=== PATIENT | female | born 1980 | race Caucasian/White ===

== ENCOUNTER → 2017-11-06 14:57 | Outpatient (CLI) | payer OTHER, MEDICAID, SELFPAY ==
[2017-11-06 17:05] LABS: Follicle Stimulating Hormone 1.19 mIU/mL; Luteinizing Hormone 0.87 mIU/mL; Prolactin 8.4 ng/mL (3.0-18.6)
[2017-11-06 17:18] LABS: Thyroid Stimulating Hormone 0.31 uIU/mL (0.47-4.68)
== END ==
DX: N92.1 Excessive and frequent menstruation with irregular cycle (principal)
CPT/HCPCS: 36415; 83001; 83002; 84146; 84443

== ENCOUNTER → 2018-01-22 17:27 | Outpatient (CLI) | payer OTHER, MEDICAID, SELFPAY ==
--- NOTE | 2018-01-22 | DI.MRI.S_ITS ---
PROCEDURE: MR HEAD/BRAIN WO CON INDICATIONS: HEADACHE TECHNIQUE: Noncontrast axial T1 spin echo, axial T2 fast spin echo, sagittal and axial FLAIR, coronal T2 fast spin echo, axial gradient echo, axial diffusion and ADC through the brain. COMPARISON: [facility], US, CAROTID ARTERY DOPPLER BILAT, 02/26/2010, 11:40. [facility], CT, HEAD WITH AND WITHOUT CONTRAST, 02/26/2010, 10:14. [facility], CT, HEAD WITHOUT CONTRAST, 06/05/2017, 13:35. FINDINGS: Image quality: Excellent. CSF Spaces: Basal cisterns are patent. No extra-axial fluid collections. Ventricles are normal in size and shape. Brain: No intracranial masses or hemorrhage. Bajwa/white matter interface is normal. Brainstem appears normal. Diffusion-weighted images demonstrate no acute ischemic insult. No chronic ischemic insults. Normal intravascular flow voids are present. Skull and face: Calvarium has normal marrow signal. Orbits appear normal. Sinuses: Sinuses and mastoids are clear. IMPRESSION: Normal examination. A cause for headache is not identified. Dictated by: Areli Ragsdale M.D. on 01/25/2018 at 8:00 Approved by: Areli Ragsdale M.D. on 01/25/2018 at 10:16
== END ==
PROVIDERS: Visit Provider Family Medicine
DX: R51 Headache (principal)
CPT/HCPCS: 70551

== ENCOUNTER → 2018-04-16 18:46 | Outpatient (CLI) | payer OTHER, MEDICAID, SELFPAY ==
--- NOTE | 2018-04-16 | DI.MRI.S_ITS ---
PROCEDURE: MR KNEE RT WO CON INDICATIONS: ACUTE INTERNAL DERANGEMENT OF THE RIGHT KNEE TECHNIQUE: Noncontrast sagittal PD fast spin echo and T2 fast spin echo with fat saturation, sagittal 3-D FLASH with fat saturation; coronal T1 spin echo and PD fast spin echo with fat saturation, and axial PD fast spin echo with fat saturation through the knee. COMPARISON: None. FINDINGS: Image quality: Excellent. Menisci: The medial and lateral menisci demonstrate normal morphology and internal signal. The meniscal root ligaments appear intact. Cruciate ligaments: The anterior and posterior cruciate ligaments appear intact. Medial structures: The medial collateral ligament appears intact. The posterior oblique ligament, semimembranosus tendon insertions, oblique popliteal ligament, and meniscocapsular junction appear intact. Visualized portions of the pes anserinus tendons appear normal. No abnormal bursal fluid. Lateral structures: The lateral collateral ligament, long and short heads of the biceps femoris tendon appear intact. The popliteus tendon appears normal; the popliteofibular ligament appears intact. The posterosuperior and anteroinferior popliteomeniscal fascicles appear intact. The arcuate and fabellofibular ligaments appear intact, on either side of the lateral inferior geniculate artery. Iliotibial band appears normal. Anterior structures: The quadriceps and patellar tendons appear intact. Patellar alignment is normal. No femoral trochlear dysplasia or ventral trochlear prominence. No edema in the infrapatellar fat pad. Bones and cartilage: No bone marrow contusions or fractures. Focal, near full-thickness thinning of articular cartilage in the lateral and patellofemoral compartments. Tricompartmental marginal osteophytosis noted. Joint space: There is moderate size joint effusion. No Abbasi's cyst. Normal appearing synovial plicae are incidentally noted. IMPRESSION: 1. No evidence of internal derangement. 2. 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 3. Nonspecific joint effusion. Dictated by: Ava Clifford MD, PhD on 04/17/2018 at 23:04 Approved by: Ava Clifford MD, PhD on 04/17/2018 at 23:07
== END ==
PROVIDERS: Visit Provider Physician Assistant
DX: M23.91 Unspecified internal derangement of right knee (principal); M17.11 Unilateral primary osteoarthritis, right knee; M25.461 Effusion, right knee
CPT/HCPCS: 73721

== ENCOUNTER 2019-07-08 12:56 | Emergency (ER) | payer OTHER, MEDICAID, SELFPAY ==
[2019-07-08 13:00] VITALS: BP 137/91; PULSE 75; RESP 20; TEMP 37.5; O2SAT 100; BMI 29.0
--- NOTE | 2019-07-08 13:20 | ED.URI ---
HPI - URI/Sore Throat General Chief Complaint: Upper Respiratory Symptoms Stated Complaint: ear/sinus infection,shortness of breath Time Seen by Provider: 07/08/19 13:00 Source: patient Mode of arrival: Ambulatory Limitations: no limitations History of Present Illness HPI Narrative: Related Data Home Medications Medication Instructions Recorded Confirmed oxycodone-acetaminophen 5 mg-325 1 tab PO Q4-6H PRN 12/07/18 12/07/18 mg tablet topiramate 100 mg tablet 200 mg PO BEDTIME tab 12/07/18 12/07/18 alprazolam 2 mg PO Q4-6H PRN 07/08/19 07/08/19 cephalexin 500 mg PO QID 07/08/19 07/08/19 hepatitis A virus vaccine (PF) 1 ml IM DIRECTED 07/08/19 07/08/19 [Havrix (PF)] topiramate 25 mg PO BEDTIME 07/08/19 07/08/19 Previous Rx's Medication Instructions Recorded naproxen sodium 550 mg tablet 550 mg PO TID #60 tab 12/07/18 tranexamic acid 650 mg tablet 1,300 mg PO TID #60 tab 12/07/18 amoxicillin-pot clavulanate 1 tab PO BID 14 Days #28 tab 07/08/19 [Augmentin] Allergies Allergy/AdvReac Type Severity Reaction Status Date / Time Sulfa (Sulfonamide Allergy Intermediate HIVES Verified 12/07/18 15:26 Antibiotics) hydrocodone [HYDROCODONE] Allergy Mild ITCH NAUSEA Verified 12/07/18 15:26 Patient History Surgical History (Updated 02/22/18 @ 10:48 by Miryam Goldstein) Status post delivery (Resolved 12/17/97) Status post delivery (Resolved 10/28/04) Status post delivery (Resolved 02/19/07) Social History Smoking Status: Current every day smoker Smoking Status: Current every day smoker tobacco type: cigarettes alcohol intake frequency: holidays/special occasions only Substance Use Type: does not use Exam Initial Vital Signs Initial Vital Signs: Vital Signs Temperature 99.5 F 07/08/19 13:00 Pulse Rate 75 07/08/19 13:00 Respiratory Rate 20 07/08/19 13:00 Blood Pressure 137/91 H 07/08/19 13:00 Pulse Oximetry 100 07/08/19 13:00 Course Vital Signs Vital signs: Vital Signs - 8 hr 07/08/19 13:00 Temperature 99.5 F Pulse Rate 75 Respiratory Rate 20 Blood Pressure 137/91 H Pulse Oximetry 100 Discharge Plan Departure Patient Disposition: Home Clinical Impression: Acute sinus infection Qualifiers: Sinusitis location: unspecified location Recurrence: not specified as recurrent Qualified Code(s): J01.90 - Acute sinusitis, unspecified Discharge Date/Time: 07/08/19 13:48 Instructions: DI for Sinusitis Activity Restrictions/Additional Instructions: You have been diagnosed with [right ear infection and sinus infection. Please stop taking Keflex for sinus infection and start Augmentin twice a day for next 14 days.]. What to do: *Take your medications as directed. You can take paay-dhu-[id number] allergy medications or Mucinex decongestant for ear congestion and sinus congestion. You have to hydrate very well when her taking these medications. Please use humidifier with clean water. You can consider start using sinus rinses. You can take hnfq-gzt-[id number] Tylenol and or Motrin as needed for discomfort and fever. Augmentin has been transmitted to [facility] in [place]. As we discussed, please work on smoking cessation. *Follow up with your primary care provider in 2-3 days, call for an appointment. Let them know you were seen in the ED and that we asked you to be seen in follow up. *Return to ED if you have any new, worsening, or concerning symptoms, such as [chest pain, breathing difficulty, unable to tolerate fluids, high fever, redness/warmth/pain spreading to her face or any acute concerns]. Prescriptions: New amoxicillin-pot clavulanate [Augmentin] 875-125 mg tablet 1 tab PO BID 14 Days Qty: 28 RF: 0 No Action oxycodone-acetaminophen [Percocet] 5-325 mg tablet 1 tab PO Q4-6H PRNRF: 0 topiramate [Topamax] 100 mg tablet 200 mg PO BEDTIME RF: 0 naproxen sodium 550 mg tablet 550 mg PO TID Qty: 60 RF: 0 tranexamic acid [Lysteda] 650 mg tablet 1,300 mg PO TID Qty: 60 RF: 3 topiramate 25 mg tablet 25 mg PO BEDTIME RF: 0 cephalexin 500 mg capsule 500 mg PO QID RF: 0 alprazolam 2 mg tablet 2 mg PO Q4-6H PRN (Reason: Anxiety) RF: 0 Havrix (PF) 1,440 FACUNDO unit/mL syringe 1 ml IM DIRECTED RF: 0 Referrals: Rhys Barnes MD [Primary Care Provider] -
--- NOTE | 2019-07-08 22:07 | ED.URI ---
HPI - URI/Sore Throat <ADAN Gil - Last Filed: 07/08/19 22:27> General Chief Complaint: Upper Respiratory Symptoms Stated Complaint: ear/sinus infection,shortness of breath Time Seen by Provider: 07/08/19 13:00 Source: patient Mode of arrival: Ambulatory Limitations: no limitations History of Present Illness HPI Narrative: This is a 39-year-old female, smoker, who presents to ED with chief complain of brain fog and dizziness and stating not right in my head and not feel right. She reports had returned on Thursday from a trip from [facility] and has been having sinus congestion/pain, ear pain and headaches onset 5 days ago. She was evaluated by her PCP, Dr. Barnes, 2 days ago and diagnosed with sinus and ear infection. She reports is currently taking Keflex for 10 days for sinus/ear infection but she is not feeling improved. She also reports she has coughing, tightness in her chest and short of breath. She also was treated with 2 courses of prednisone for rash about 2 weeks ago. She has a history migraine headache, low back pain, anxiety, knee pain. Related Data Home Medications Medication Instructions Recorded Confirmed oxycodone-acetaminophen 5 mg-325 1 tab PO Q4-6H PRN 12/07/18 12/07/18 mg tablet topiramate 100 mg tablet 200 mg PO BEDTIME tab 12/07/18 12/07/18 alprazolam 2 mg PO Q4-6H PRN 07/08/19 07/08/19 cephalexin 500 mg PO QID 07/08/19 07/08/19 hepatitis A virus vaccine (PF) 1 ml IM DIRECTED 07/08/19 07/08/19 [Havrix (PF)] topiramate 25 mg PO BEDTIME 07/08/19 07/08/19 Previous Rx's Medication Instructions Recorded naproxen sodium 550 mg tablet 550 mg PO TID #60 tab 12/07/18 tranexamic acid 650 mg tablet 1,300 mg PO TID #60 tab 12/07/18 amoxicillin-pot clavulanate 1 tab PO BID 14 Days #28 tab 07/08/19 [Augmentin] Allergies Allergy/AdvReac Type Severity Reaction Status Date / Time Sulfa (Sulfonamide Allergy Intermediate HIVES Verified 12/07/18 15:26 Antibiotics) hydrocodone [HYDROCODONE] Allergy Mild ITCH NAUSEA Verified 12/07/18 15:26 Review of Systems <ADAN Gil - Last Filed: 07/08/19 22:27> Review of Systems Narrative: General: Denies fever, chills, fatigue, malaise, sweats. HEENT: See HPI Respiratory: Denies dyspnea, (+) cough, wheezing, hemoptysis, sputum. Cardiovascular: Denies (+) chest tightness and shortness of breath with cough, palpitations, orthopnea, edema. Gastrointestinal: Denies nausea, vomiting, abdominal pain, diarrhea, constipation, melena. : Denies dysuria, frequency, incontinence, hematuria, urinary retention. Musculoskeletal: Denies weakness, joint pain or bony pain. Skin: Denies rash, skin lesions, or other. Neurologic: Denies weakness, headache, numbness, change in speech, confusion, seizures, incoordination. Psychiatric: No concerning psychosocial issues. 12-point review of systems is negative except for those stated above. Patient History <ADAN Gil - Last Filed: 07/08/19 22:27> Medical History Anxiety (Acute) Back pain (Acute) Knee pain (Acute) Migraine headache (Acute) Surgical History S/P foot surgery, left (Acute) Status post delivery (Resolved 12/17/97) Status post delivery (Resolved 10/28/04) Status post delivery (Resolved 02/19/07) Social History Smoking Status: Current every day smoker Smoking Status: Current every day smoker tobacco type: cigarettes alcohol intake frequency: holidays/special occasions only Substance Use Type: does not use Exam <ADAN Gil - Last Filed: 07/08/19 22:27> Narrative Exam Narrative: GEN: Alert, oriented x 3, well appearing and nourished, and in no acute distress. Head: Normal cephalic, atraumatic. No scalp or temporal tenderness, palpable mass or rash. EYES: Pupils are equal, round, and reactive to light and accommodation. Extraocular muscles are intact bilaterally. There is no subconjunctival hemorrhage, exudate and sclera non-icteric. ENT: Bilateral auditory canals clear. Right TM injected and bulging. Hearing grossly intact. Nose without bleeding but with purulent discharge. Facial sinuses tender and warmth palpate with erythema. Mucous membrane moist, no mucosal lesion. Throat without erythema, tonsillar hypertrophy or exudate. Uvula in midline, airway patent. Neck: Trachea in midline. No JVD, non-tender without lymphadenopathy. No masses or thyroid megaly. Supple, non-tender and no meningeal signs. CARDIAC: Normal regular rate and rhythm without murmurs, gallops, or rubs. No chest wall tenderness. No peripheral edema, cyanosis or pallor. Capillary refill is less than 2 seconds. RESPIRATORY: Lungs are clear to auscultate bilaterally. No cough, wheezes, rales, or rhonchi. No stridor, respiratory distress, increase work of breathing, or accessary muscle used. ABD: Abdomen soft, nontender and non-distended. No guarding or rebound tenderness to palpate. Bowel sounds are normal in all 4 quadrants. There is no palpable masses or organomegaly. EXT: Full painless ROM of all extremities with no loss of sensation, strength, effusion or edema. SKIN: Warm, dry, normal color for patient. No erythema, lesions or rash over visible areas. BACK: Nontender without deformity or crepitance. NEUROLOGICAL: Alert and oriented to place, time and person. Sensation and motor function intact bilaterally. No facial droops, dysphasia. PSYCHIATRIC: Good judgement and reason, without hallucinations, abnormal affect or abnormal behaviors during the examination. Initial Vital Signs Initial Vital Signs: Vital Signs Temperature 99.5 F 07/08/19 13:00 Pulse Rate 75 07/08/19 13:00 Respiratory Rate 07/08/19 13:00 Blood Pressure 137/91 H 07/08/19 13:00 Pulse Oximetry 100 07/08/19 13:00 <Roberto Braun DO - Last Filed: 07/09/19 07:24> Initial Vital Signs Initial Vital Signs: Vital Signs Temperature 99.5 F 07/08/19 13:00 Pulse Rate 75 07/08/19 13:00 Respiratory Rate 07/08/19 13:00 Blood Pressure 137/91 H 07/08/19 13:00 Pulse Oximetry 100 07/08/19 13:00 Scores <ADAN Gil - Last Filed: 07/08/19 22:27> GCS Aline coma scale eye opening: Spontaneous Montague coma scale verbal response: Orientated [place] coma scale motor response: Obey commands Aline coma scale total score: 15 MDM - URI/Sore Throat <ADAN Gil - Last Filed: 07/08/19 22:27> Differential Diagnosis Differential diagnosis: Likely upper respiratory infection, otitis media and other (Sinus infection) Medical Records Attestation: I reviewed the patient's medical records. [facility] Narrative Medical decision making narrative: Patient is currently treated for sinus and ear infection with Keflex 500 mg q.i.d. for 10 days and she started this medication 2 days ago without much improvement and she presents to ED for an evaluation for sinus, ear discomfort/congestion with dizziness. Patient's symptoms are likely due to sinus and ear congestion and infection. Patient is short of breath, chest tightness is likely due to upper respiratory infection symptoms and cough. Has been stable in ED. Patient is current smoker and we discussed about smoking cessation. Since patient is not improving with Keflex and this is not 1st choice for sinus infection or ear infection, patient's medication has been changed to Augmentin b.i.d. for 14 day course and patient advised to stop taking Keflex. Patient also advised to consider nasal rinses, using humidifier, Mucinex D or mcwj-khr-buspsxb allergy medications for congestion and to push fluids. Return precautions were discussed with the patient and patient advised to follow-up with her primary care physician. Patient verbalized understanding and in agreement with the treatment plan. Discharge Plan Departure Patient Disposition: Home Clinical Impression: Acute sinus infection Qualifiers: Sinusitis location: unspecified location Recurrence: not specified as recurrent Qualified Code(s): J01.90 - Acute sinusitis, unspecified Discharge Date/Time: 07/08/19 13:48 Instructions: DI for Sinusitis Activity Restrictions/Additional Instructions: You have been diagnosed with [right ear infection and sinus infection. Please stop taking Keflex for sinus infection and start Augmentin twice a day for next 14 days.]. What to do: *Take your medications as directed. You can take tkyx-ndk-[id number] allergy medications or Mucinex decongestant for ear congestion and sinus congestion. You have to hydrate very well when her taking these medications. Please use humidifier with clean water. You can consider start using sinus rinses. You can take nyzw-ymi-[id number] Tylenol and or Motrin as needed for discomfort and fever. Augmentin has been transmitted to [facility] in [place]. As we discussed, please work on smoking cessation. *Follow up with your primary care provider in 2-3 days, call for an appointment. Let them know you were seen in the ED and that we asked you to be seen in follow up. *Return to ED if you have any new, worsening, or concerning symptoms, such as [chest pain, breathing difficulty, unable to tolerate fluids, high fever, redness/warmth/pain spreading to her face or any acute concerns]. Prescriptions: New amoxicillin-pot clavulanate [Augmentin] 875-125 mg tablet 1 tab PO BID 14 Days Qty: 28 RF: 0 No Action oxycodone-acetaminophen [Percocet] 5-325 mg tablet 1 tab PO Q4-6H PRNRF: 0 topiramate [Topamax] 100 mg tablet 200 mg PO BEDTIME RF: 0 naproxen sodium 550 mg tablet 550 mg PO TID Qty: 60 RF: 0 tranexamic acid [Lysteda] 650 mg tablet 1,300 mg PO TID Qty: 60 RF: 3 topiramate 25 mg tablet 25 mg PO BEDTIME RF: 0 cephalexin 500 mg capsule 500 mg PO QID RF: 0 alprazolam 2 mg tablet 2 mg PO Q4-6H PRN (Reason: Anxiety) RF: 0 Havrix (PF) 1,440 FACUNDO unit/mL syringe 1 ml IM DIRECTED RF: 0 Referrals: Rhys Barnes MD [Primary Care Provider] -
== END 2019-07-08 13:48 | disposition home or self-care (01) ==
PROVIDERS: Emergency Provider Nurse Practitioner Family; PCP Family Medicine
DX: J01.90 Acute sinusitis, unspecified (principal)
CPT/HCPCS: 99281; 99283

== ENCOUNTER 2021-03-22 14:04 | Emergency (ER) | payer OTHER, MEDICAID, SELFPAY ==
[2021-03-22] VITALS (7 sets, daily range): BP systolic 139–148; BP diastolic 71–72; PULSE 61–76; RESP 12–18; TEMP 36.4; O2SAT 82–100; BMI 32.6
--- NOTE | 2021-03-22 14:41 | ED_ITS ---
HPI - Female Genitourinary <Sher Pryor PA-C - Last Filed: 03/22/21 17:34> General Chief complaint: Urogenital-Female Stated complaint: Rt Sided Back Pain Time Seen by Provider: 03/22/21 14:22 Source: patient Mode of arrival: Ambulatory Limitations: no limitations History of Present Illness HPI Narrative: Patient is a 40-year-old female presents to emergency department today for an evaluation of right flank pain that began 2 days ago. Patient states that her pain started out dull but has since become sharp and more consistent. Of note, patient states that she has taken ibuprofen today without any relief. She currently rates her pain an 8/10 in intensity, and she notes that a dose of Percocet taken last night did not alleviate her pain. Patient states that she has a history of low back pain but explains that she has never had symptoms like this in the past. She reports associated nausea and abdominal pain. Patient denies fever, chills, chest pain, cough, shortness of breath, vomiting, diarrhea, dysuria, or anorexia. No other concerns voiced at this time. Related Data Home Medications Medication Instructions Recorded Confirmed oxycodone-acetaminophen 5 mg-325 1 tab PO Q4-6H PRN 12/07/18 12/07/18 mg tablet (Percocet) topiramate 100 mg tablet (Topamax) 200 mg PO BEDTIME tab 12/07/18 12/07/18 alprazolam 2 mg tablet 2 mg PO Q4-6H PRN 07/08/19 07/08/19 cephalexin 500 mg capsule 500 mg PO QID 07/08/19 07/08/19 hepatitis A virus vaccine (PF) 1 ml IM DIRECTED 07/08/19 07/08/19 1,440 FACUNDO unit/mL intramuscular syringe (Havrix (PF)) topiramate 25 mg tablet 25 mg PO BEDTIME 07/08/19 07/08/19 Previous Rx's Medication Instructions Recorded naproxen sodium 550 mg tablet 550 mg PO TID #60 tab 12/07/18 tranexamic acid 650 mg tablet 1,300 mg PO TID #60 tab 12/07/18 (Lysteda) ondansetron HCl 4 mg tablet 4 mg PO Q8H PRN #30 tab 03/22/21 (Zofran) oxycodone 10 mg tablet 10 mg PO Q6H PRN #15 tab 03/22/21 Allergies Allergy/AdvReac Type Severity Reaction Status Date / Time Sulfa (Sulfonamide Allergy Intermediate HIVES Verified 12/07/18 15:26 Antibiotics) hydrocodone [HYDROCODONE] Allergy Mild ITCH NAUSEA Verified 12/07/18 15:26 Review of Systems <Sher Pryor PA-C - Last Filed: 03/22/21 17:34> Constitutional Constitutional: Denies chills, Denies fever(s), Denies lethargy and Denies weakness Cardiovascular Cardiovascular: Denies chest pain, Denies irregular heart rhythm, Denies lightheadedness, Denies palpitations, Denies dyspnea, Denies dyspnea on exertion and Denies orthopnea Respiratory Respiratory: Denies cough, Denies dyspnea, Denies dyspnea on exertion and Denies wheezing Gastrointestinal Gastrointestinal: Reports abdominal pain (Right-sided), Denies change in bowel habits, Denies diarrhea, Reports nausea and Denies vomiting Genitourinary Genitourinary: Denies hematuria, Denies dysuria and Denies urinary incontinence Musculoskeletal Musculoskeletal: Reports other (Right-sided low back pain) Neurologic Neurologic: Denies weakness Endocrine Endocrine: Denies palpitations Allergic/Immunologic Allergic/Immunologic: Denies wheezing Patient History <Sher Pryor PA-C - Last Filed: 03/22/21 17:34> Medical History (Updated 03/22/21 @ 16:02 by Sher Pryor PA-C) Anxiety Back pain Knee pain Migraine headache Surgical History S/P foot surgery, left Status post delivery (12/17/97) Status post delivery (10/28/04) Status post delivery (02/19/07) tobacco type: cigarettes alcohol intake frequency: holidays/special occasions only Substance Use Type: does not use Exam <Sher Pryor PA-C - Last Filed: 03/22/21 17:34> Narrative Exam Narrative: GENERAL: 40 year old patient appears stated age. Well-developed patient, in mild distress. HEAD: Atraumatic. Normocephalic. EYES: Pupils equal round and reactive. Extraocular motions intact. No scleral icterus. No injection or drainage. ENT: Nose without bleeding, purulent drainage. Throat without erythema, tonsillar hypertrophy or exudate. Airway patent. NECK: Trachea midline. Non tender CARDIOVASCULAR: Regular rate and rhythm without murmurs, gallops, or rubs. RESPIRATORY: Clear to auscultation. Breath sounds equal bilaterally. No wheezes, rales, or rhonchi. GASTROINTESTINAL: Abdomen soft, previous scars. Tenderness to palpation over the right upper quadrant and epigastrium. Bowel sounds present. Negative McBurney's point, negative obturator's sign. EXTREMITIES: No edema or joint tenderness. BACK: No deformity or crepitance. Right-sided flank tenderness, CVA tenderness on the right side. NEURO: AOx3. SKIN: No rash or erythema of visible areas Initial Vital Signs Initial Vital Signs: Vital Signs Temperature 97.6 F 03/22/21 14:15 Pulse Rate 76 03/22/21 14:15 Respiratory Rate 12 03/22/21 14:15 Blood Pressure 148/72 H 03/22/21 14:15 Pulse Oximetry 98 03/22/21 14:15 <Todd Prieto DO - Last Filed: 03/22/21 18:05> Initial Vital Signs Initial Vital Signs: Vital Signs Temperature 97.6 F 03/22/21 14:15 Pulse Rate 76 03/22/21 14:15 Respiratory Rate 12 03/22/21 14:15 Blood Pressure 148/72 H 03/22/21 14:15 Pulse Oximetry 98 03/22/21 14:15 Course <Sher Pryor PA-C - Last Filed: 03/22/21 17:34> Course Course Narrative: Patient is a 40-year-old female presents to emergency department today for an evaluation of right flank pain that began 2 days ago. Orders Ordered: ED Orders 03/22/21 14:33 Complete Blood Count AUTO DIFF Stat Comprehensive Metabolic Panel Stat Lipase Stat 03/22/21 14:51 CT abdomen pelvis w con Stat Discontinued Medications Ketorolac Tromethamine (Ketorolac 30 Mg/Ml Vial) 30 mg IV NOW ONE Stop: 03/22/21 15:47 Last Admin: 03/22/21 15:53 Dose: 30 mg Documented by: DEEPA Vital Signs Vital signs: Vital Signs - 8 hr 03/22/21 14:15 03/22/21 14:27 03/22/21 14:30 Temperature 97.6 F Pulse Rate 76 74 71 Respiratory Rate 12 Blood Pressure 148/72 H 142/71 H Pulse Oximetry 98 98 100 03/22/21 15:00 03/22/21 15:56 03/22/21 16:00 Temperature Pulse Rate 64 61 76 Respiratory Rate Blood Pressure 139/72 Pulse Oximetry 100 82 L 95 03/22/21 16:13 Temperature Pulse Rate 70 Respiratory Rate 18 Blood Pressure 139/72 Pulse Oximetry 97 <Todd Prieto DO - Last Filed: 03/22/21 18:05> Orders Ordered: ED Orders 03/22/21 14:33 Complete Blood Count AUTO DIFF Stat Comprehensive Metabolic Panel Stat Lipase Stat 03/22/21 14:51 CT abdomen pelvis w con Stat Discontinued Medications Ketorolac Tromethamine (Ketorolac 30 Mg/Ml Vial) 30 mg IV NOW ONE Stop: 03/22/21 15:47 Last Admin: 03/22/21 15:53 Dose: 30 mg Documented by: DEEPA Vital Signs Vital signs: Vital Signs - 8 hr 03/22/21 14:15 03/22/21 14:27 03/22/21 14:30 Temperature 97.6 F Pulse Rate 76 74 71 Respiratory Rate 12 Blood Pressure 148/72 H 142/71 H Pulse Oximetry 98 98 100 03/22/21 15:00 03/22/21 15:56 03/22/21 16:00 Temperature Pulse Rate 64 61 76 Respiratory Rate Blood Pressure 139/72 Pulse Oximetry 100 82 L 95 03/22/21 16:13 Temperature Pulse Rate 70 Respiratory Rate 18 Blood Pressure 139/72 Pulse Oximetry 97 MDM - Female Genitourinary <Sher Pryor PA-C - Last Filed: 03/22/21 17:34> Lab Data Result diagrams: 03/22/21 14:33 03/22/21 14:33 Labs: Lab Results 03/22/21 03/22/21 Range/Units 14:33 14:33 WBC 6.9 (4.5-11.0) X10^3/uL RBC 4.76 (4.0-5.2) X10^6/uL Hgb 14.5 (12.0-16.0) g/dL Hct 41.9 (36-46) % MCV 88.1 (80-100) fL MCH 30.4 (26-34) PG MCHC 34.5 (30-36) % RDW 12.4 (11.6-14.8) % Plt Count 245 (150-400) X10^3/uL Neut % (Auto) 63.0 (50-75) % Lymph % (Auto) 27.9 (25-40) % [place] % (Auto) 7.3 (3-14) % Eos % (Auto) 1.1 L (2-4) % Baso % (Auto) 0.7 (0-2) % Neut # (Auto) 4400 (8571-2973) /uL Lymph # (Auto) 1900 (7557-4345) /uL [place] # (Auto) 500 (0-900) /uL Eos # (Auto) 100 (0-450) /uL Baso # (Auto) 0 (0-100) /uL Sodium 138 (137-145) mmol/L Potassium 4.0 (3.4-5.1) mmol/L Chloride 108 H (98-107) mmol/L Carbon Dioxide 24 (22-32) mmol/L BUN 12 (7-17) mg/dL Creatinine 0.76 (0.52-1.04) mg/dL Estimated GFR > 60.0 (>60) mL/min BUN/Creatinine Ratio 15.8 (6-22) Glucose 84 (70-100) mg/dL Calcium 9.0 (8.4-10.2) mg/dL Total Bilirubin 0.4 (0.2-1.3) mg/dL AST 27 (14-36) IU/L ALT 21 (<35) IU/L Alkaline Phosphatase 52 (38-126) U/L Total Protein 6.8 (6.3-8.2) g/dL Albumin 4.0 (3.5-5.0) g/dL Globulin 2.8 (1.7-4.1) g/dL Albumin/Globulin Ratio 1.4 (1.0-2.8) Lipase 124 (23-300) U/L Urine Dip Bedside Urine Glucose Negative Bedside Urine Bilirubin - Negative Bedside Urine Ketone - Negative Urine Specific [place] 1.025 Bedside Urine Occult Blood - Negative Bedside Urine pH 6.0 Bedside Urine Protein - Negative Bedside Urine Urobilinogen - Negative Bedside Urine Nitrite - Negative Bedside Urine Leukocytes - Negative Esterase Imaging Data CT scan - abdomen/pelvis: Radiologist's Impression: PROCEDURE:? CT ABDOMEN PELVIS W CON ? INDICATIONS:? abdominal pain, flank pain ? TECHNIQUE:? After the administration of intravenous contrast, axial sections acquired from the lung bases to the pubic symphysis.? Coronal and sagittal reformats were performed.? For radiation dose reduction, the following was used:? automated exposure control, adjustment of mA and/or kV according to patient size.? ? COMPARISON:? None. ? FINDINGS:? Image quality:? Excellent.? ? Lung bases:? Lung bases are clear. Heart:? No significant findings. ? ABDOMEN: Liver:? Unremarkable.? ? Gallbladder:? Unremarkable.? ? Biliary ducts:? Unremarkable.? ? Pancreas:? Unremarkable.? ? Spleen:? Unremarkable.? ? Adrenal Glands:? Unremarkable.? ? Kidneys and Ureters:? No kidney stones.? No hydronephrosis.? No perinephric stranding.? There is a small 2 mm punctate density noted in the distal right ureter (image 77/series 2) which likely represents a nonobstructing distal right ureteral stone.? It is seen a short distance proximal to the right ureterovesicular junction.? No hydroureter.? No periureteral inflammation. ? Stomach and Bowel:? Stomach, small bowel loops, and colon are unremarkable.? Normal appendix. Peritoneum:? No abnormal intraperitoneal fluid.? No free air.? ? Ventral Wall: ? No hernias.? Abdominal Nodes:? No retroperitoneal or mesenteric adenopathy by size criteria.? Vessels:? Aorta and inferior vena cava are normal in size.? ? PELVIS: Pelvic Organs:? Unremarkable.? ? Bladder:? Urinary bladder thickness appears normal for degree of distention. No perivesicular inflammatory stranding. Pelvic Nodes: No enlarged lymph nodes.? Miscellaneous: No hernias are seen. ? ? ? Bones:? Unremarkable.? ? No acute compression fracture ? ? IMPRESSION:? ? 1. There is a 2 mm punctate density in the right lower pelvis which appears to be within the distal right ureter.? Findings are consistent with a nonobstructing 2 mm distal right ureteral stone.? No associated hydroureteronephrosis or perinephric/periureteral stranding.? Recommend correlation with side of patient's pain and urinalysis. ? 2. Normal appendix.? ? Dictated by: Fredy Martínez M.D. on 03/22/2021 at 15:37 ? ? Approved by: Fredy Martínez M.D. on 03/22/2021 at 15:45 ? [facility] Narrative Medical decision making narrative: Patient is a 40-year-old female presents to emergency department today for an evaluation of right flank pain that began 2 days ago. To consider nephrolithiasis versus appendicitis versus cholelithiasis versus lumbago. Physical examination and history overall consistent with nephrolithiasis. Tenderness over the right flank with positive CVA tenderness, discussed with the patient her history and she states that she has never experienced a kidney stone in the past. Abdomen and pelvis with IV contrast ordered. CT showed a 2 mm punctate density in the right lower pelvis within the distal right ureter. The findings are consistent with a nonobstructing 2 mm distal right ureteral stone. Discussed with patient the results of the CT. Instructed the patient to return to the ER if she starts to experience a fever or worsening pain. Also instructed the patient to contact her primary care provider as soon as possible and schedule the earliest available appointment. Strict return precautions discussed with the patient prior to discharge. <Todd Prieto, - Last Filed: 03/22/21 18:05> Lab Data Labs: Lab Results 03/22/21 03/22/21 Range/Units 14:33 14:33 WBC 6.9 (4.5-11.0) X10^3/uL RBC 4.76 (4.0-5.2) X10^6/uL Hgb 14.5 (12.0-16.0) g/dL Hct 41.9 (36-46) % MCV 88.1 (80-100) fL MCH 30.4 (26-34) PG MCHC 34.5 (30-36) % RDW 12.4 (11.6-14.8) % Plt Count 245 (150-400) X10^3/uL Neut % (Auto) 63.0 (50-75) % Lymph % (Auto) 27.9 (25-40) % [place] % (Auto) 7.3 (3-14) % Eos % (Auto) 1.1 L (2-4) % Baso % (Auto) 0.7 (0-2) % Neut # (Auto) 4400 (3669-6123) /uL Lymph # (Auto) 1900 (7166-5444) /uL [place] # (Auto) 500 (0-900) /uL Eos # (Auto) 100 (0-450) /uL Baso # (Auto) 0 (0-100) /uL Sodium 138 (137-145) mmol/L Potassium 4.0 (3.4-5.1) mmol/L Chloride 108 H (98-107) mmol/L Carbon Dioxide 24 (22-32) mmol/L BUN 12 (7-17) mg/dL Creatinine 0.76 (0.52-1.04) mg/dL Estimated GFR > 60.0 (>60) mL/min BUN/Creatinine Ratio 15.8 (6-22) Glucose 84 (70-100) mg/dL Calcium 9.0 (8.4-10.2) mg/dL Total Bilirubin 0.4 (0.2-1.3) mg/dL AST 27 (14-36) IU/L ALT 21 (<35) IU/L Alkaline Phosphatase 52 (38-126) U/L Total Protein 6.8 (6.3-8.2) g/dL Albumin 4.0 (3.5-5.0) g/dL Globulin 2.8 (1.7-4.1) g/dL Albumin/Globulin Ratio 1.4 (1.0-2.8) Lipase 124 (23-300) U/L Urine Dip Bedside Urine Glucose Negative Bedside Urine Bilirubin - Negative Bedside Urine Ketone - Negative Urine Specific [place] 1.025 Bedside Urine Occult Blood - Negative Bedside Urine pH 6.0 Bedside Urine Protein - Negative Bedside Urine Urobilinogen - Negative Bedside Urine Nitrite - Negative Bedside Urine Leukocytes - Negative Esterase Discharge Plan Departure Patient Disposition: Home Clinical Impression: Nephrolithiasis Instructions: DI for Kidney Stones Activity Restrictions/Additional Instructions: *You have been diagnosed with right-sided kidney stone *What to do: *Please continue to take your regular medications as directed. [X] New medication prescriptions sent to your pharmacy: [facility] [ ] New medication written as a paper prescription [ ] No new medications given *Please follow up with your primary care provider in 2-3 days, call for an appointment. Let them know you were seen in the Emergency Department and that we ask that you be seen in follow up. We will electronically transmit a record of today's note if your PCP is in our system *If you do not have a primary care provider please contact the [facility] Resource line at [phone]. They will ask some questions about your medical history and help get you set up with a doctor in the community. *Return to Emergency Department if you should have any new, worsening or concerning symptoms, such as fever greater than 101 F, shaking chills, worsening pain, persistent vomiting, gross blood in urine, or other bothersome symptoms. Prescriptions: New ondansetron HCl [Zofran] 4 mg tablet 4 mg PO Q8H PRN (Reason: nausea and vomiting) Qty: 30 RF: 0 oxycodone 10 mg tablet 10 mg PO Q6H PRN (Reason: pain) Qty: 15 RF: 0 No Action oxycodone-acetaminophen [Percocet] 5-325 mg tablet 1 tab PO Q4-6H PRNRF: 0 topiramate [Topamax] 100 mg tablet 200 mg PO BEDTIME RF: 0 naproxen sodium 550 mg tablet 550 mg PO TID Qty: 60 RF: 0 tranexamic acid [Lysteda] 650 mg tablet 1,300 mg PO TID Qty: 60 RF: 3 topiramate 25 mg tablet 25 mg PO BEDTIME RF: 0 cephalexin 500 mg capsule 500 mg PO QID RF: 0 alprazolam 2 mg tablet 2 mg PO Q4-6H PRN (Reason: Anxiety) RF: 0 Havrix (PF) 1,440 FACUNDO unit/mL syringe 1 ml IM DIRECTED RF: 0 Referrals: Rhys Barnes MD [Primary Care Provider] - <Todd Prieto, - Last Filed: 03/22/21 18:05> [facility] Dr Prieto Co-Sign Statement: I was available for consultation during this patient's emergency department visit. Th is chart is signed by myself for administrative purposes only. I did not have direct contact with this patient during this visit. They were seen independently by the APC.
--- NOTE | 2021-03-22 14:51 | DI.CT.S_ITS ---
PROCEDURE: CT ABDOMEN PELVIS W CON INDICATIONS: abdominal pain, flank pain TECHNIQUE: After the administration of intravenous contrast, axial sections acquired from the lung bases to the pubic symphysis. Coronal and sagittal reformats were performed. For radiation dose reduction, the following was used: automated exposure control, adjustment of mA and/or kV according to patient size. COMPARISON: None. FINDINGS: Image quality: Excellent. Lung bases: Lung bases are clear. Heart: No significant findings. ABDOMEN: Liver: Unremarkable. Gallbladder: Unremarkable. Biliary ducts: Unremarkable. Pancreas: Unremarkable. Spleen: Unremarkable. Adrenal Glands: Unremarkable. Kidneys and Ureters: No kidney stones. No hydronephrosis. No perinephric stranding. There is a small 2 mm punctate density noted in the distal right ureter (image 77/series 2) which likely represents a nonobstructing distal right ureteral stone. It is seen a short distance proximal to the right ureterovesicular junction. No hydroureter. No periureteral inflammation. Stomach and Bowel: Stomach, small bowel loops, and colon are unremarkable. Normal appendix. Peritoneum: No abnormal intraperitoneal fluid. No free air. Ventral Wall: No hernias. Abdominal Nodes: No retroperitoneal or mesenteric adenopathy by size criteria. Vessels: Aorta and inferior vena cava are normal in size. PELVIS: Pelvic Organs: Unremarkable. Bladder: Urinary bladder thickness appears normal for degree of distention. No perivesicular inflammatory stranding. Pelvic Nodes: No enlarged lymph nodes. Miscellaneous: No hernias are seen. Bones: Unremarkable. No acute compression fracture IMPRESSION: 1. There is a 2 mm punctate density in the right lower pelvis which appears to be within the distal right ureter. Findings are consistent with a nonobstructing 2 mm distal right ureteral stone. No associated hydroureteronephrosis or perinephric/periureteral stranding. Recommend correlation with side of patient's pain and urinalysis. 2. Normal appendix. Dictated by: Fredy Martínez M.D. on 03/22/2021 at 15:37 Approved by: Fredy Martínez M.D. on 03/22/2021 at 15:45
[2021-03-22 14:58] LABS: Add Manual Diff / Slide Review NO; Basophils Absolute Auto 0 /uL (0-100); Basophils Percent Auto 0.7 % (0-2); Eosinophils Absolute Auto 100 /uL (0-450); Eosinophils Percent Auto 1.1 % (2-4); Hematocrit 41.9 % (36-46); Hemoglobin 14.5 g/dL (12.0-16.0); Lymphocytes Absolute Auto 1900 /uL (1100-4500); Lymphocytes Percent Auto 27.9 % (25-40); Mean Corpuscular HGB Conc 34.5 % (30-36); Mean Corpuscular Hemoglobin 30.4 PG (26-34); Mean Corpuscular Volume 88.1 fL (80-100); Monocytes Absolute Auto 500 /uL (0-900); Monocytes Percent Auto 7.3 % (3-14); Neutrophils Absolute Auto 4400 /uL (1500-7000); Platelet Count 245 X10^3/uL (150-400); Red Blood Cell Count 4.76 X10^6/uL (4.0-5.2); Red Cell Distribution Width 12.4 % (11.6-14.8); White Blood Cell Count 6.9 X10^3/uL (4.5-11.0)
[2021-03-22 15:08] LABS: Alanine Aminotransferase 21 IU/L (<35); Albumin Globulin Ratio 1.4 (1.0-2.8); Alkaline Phosphatase 52 U/L (38-126); Aspartate Aminotransferase 27 IU/L (14-36); BUN Creatinine Ratio 15.8 (6-22); Bilirubin Total 0.4 mg/dL (0.2-1.3); Blood Urea Nitrogen 12 mg/dL (7-17); Carbon Dioxide 24 mmol/L (22-32); Chloride 108 mmol/L (98-107); Estimated Glomerular Filt Rate > 60.0 mL/min (>60); Globulin 2.8 g/dL (1.7-4.1); Glucose 84 mg/dL (70-100); HEMOLYSIS < 15 (0-50); Lipase 124 U/L (23-300); Sodium 138 mmol/L (137-145); Total Protein 6.8 g/dL (6.3-8.2)
[2021-03-22] MEDS: KETOROLAC 30 MG/ML VIAL IV (15:53)
== END 2021-03-22 16:15 | disposition home or self-care (01) ==
PROVIDERS: Emergency Provider Physician Assistant; PCP Family Medicine
DX: N20.0 Calculus of kidney (principal); R11.0 Nausea; M54.50 Low back pain, unspecified
CPT/HCPCS: 36415; 74177; 80053; 81003; 83690; 85025; 96374; 99284; J1885; Q9967

== ENCOUNTER 2021-03-31 12:46 | Emergency (ER) | payer OTHER, MEDICAID, SELFPAY ==
[2021-03-31 13:07] VITALS: BP 126/84; PULSE 59; RESP 18; TEMP 36.7; O2SAT 100
[2021-03-31 13:55] LABS: Add Manual Diff / Slide Review NO; Basophils Absolute Auto 0 /uL (0-100); Basophils Percent Auto 0.5 % (0-2); Eosinophils Absolute Auto 100 /uL (0-450); Eosinophils Percent Auto 1.1 % (2-4); Hematocrit 42.8 % (36-46); Hemoglobin 14.7 g/dL (12.0-16.0); Lymphocytes Absolute Auto 2500 /uL (1100-4500); Lymphocytes Percent Auto 32.6 % (25-40); Mean Corpuscular HGB Conc 34.4 % (30-36); Mean Corpuscular Hemoglobin 30.3 PG (26-34); Mean Corpuscular Volume 88.2 fL (80-100); Monocytes Absolute Auto 600 /uL (0-900); Monocytes Percent Auto 7.5 % (3-14); Neutrophils Absolute Auto 4400 /uL (1500-7000); Neutrophils Percent Auto 58.3 % (50-75); Platelet Count 227 X10^3/uL (150-400); Red Blood Cell Count 4.86 X10^6/uL (4.0-5.2); Red Cell Distribution Width 12.6 % (11.6-14.8); White Blood Cell Count 7.6 X10^3/uL (4.5-11.0)
[2021-03-31 14:01] LABS: Alanine Aminotransferase 24 IU/L (<35); Albumin 4.3 g/dL (3.5-5.0); Albumin Globulin Ratio 1.6 (1.0-2.8); Alkaline Phosphatase 48 U/L (38-126); Aspartate Aminotransferase 25 IU/L (14-36); BUN Creatinine Ratio 19.5 (6-22); Bilirubin Total 0.4 mg/dL (0.2-1.3); Blood Urea Nitrogen 17 mg/dL (7-17); Calcium 9.2 mg/dL (8.4-10.2); Carbon Dioxide 21 mmol/L (22-32); Chloride 105 mmol/L (98-107); Estimated Glomerular Filt Rate > 60.0 mL/min (>60); Globulin 2.7 g/dL (1.7-4.1); Glucose 86 mg/dL (70-100); HEMOLYSIS < 15 (0-50); Lipase 134 U/L (23-300); Sodium 137 mmol/L (137-145)
--- NOTE | 2021-03-31 15:03 | DI.CT.S_ITS ---
PROCEDURE: CT KIDNEY URETER BLADDER (KUB) INDICATIONS: eval rt kidney stone location/size, obstruction TECHNIQUE: Axial sections were acquired from the lung bases to the pubic symphysis. Coronal and sagittal reformats were performed. For radiation dose reduction, the following was used: automated exposure control, adjustment of mA and/or kV according to patient size. COMPARISON: [facility], CT, CT ABDOMEN PELVIS W CON, 03/22/2021, 15:20. FINDINGS: Image quality: Excellent. Lung bases: Unremarkable. Heart: No significant findings. URINARY: Right Kidney: No stones or hydronephrosis. Right Ureter: 2 mm punctate calcification near the expected location of the distal right ureter on image 2/76 and is again noted, unchanged. Additional phleboliths in the pelvis is also noted, unchanged Left Kidney: No stones or hydronephrosis. Left Ureter: No hydroureter. Bladder: Normal wall thickness. No stones. ABDOMEN: Liver: Unremarkable. Gallbladder: Unremarkable. Biliary ducts: Unremarkable. Pancreas: Unremarkable. Spleen: Unremarkable. Adrenal Glands: Unremarkable. Stomach and Bowel: Stomach, small bowel loops, and colon are unremarkable. Peritoneum: No abnormal intraperitoneal fluid. No free air. Ventral Wall: No hernia. Abdominal Nodes: No enlarged retroperitoneal or mesenteric lymph nodes. Vessels: Aorta and inferior vena cava are normal in size. PELVIS: Pelvic Organs: Unremarkable. Pelvic Nodes: Unremarkable. Miscellaneous: No inguinal hernias are seen. Bones: Unremarkable. IMPRESSION: 1. Small 2 mm density in the right lower pelvis remains unchanged from the prior exam, near the expected location of the distal right ureter. There is no hydronephrosis hydroureter present. Differential remains nonobstructive stable ureteral calculus versus phlebolith. 2. Normal appendix Approved by: Maximo Chavez M.D. on 03/31/2021 at 15:16
--- NOTE | 2021-03-31 15:16 | ED_ITS ---
HPI - Abdominal Pain <Akosua Manzo [facility] - Last Filed: 03/31/21 19:16> General Chief Complaint: Abdominal Pain Stated Complaint: Kidney Stones, Pain Getting Worse and in Abd Time Seen by Provider: 03/31/21 14:44 Source: patient Mode of arrival: Ambulatory History of Present Illness HPI narrative: 40-year-old female with history of anxiety, depression, smoking and migraines presents the emergency department today for continued right flank pain which started initially on 03/20/2021, she was seen in the emergency department on 03/22 and diagnosed with nephrolithiasis with a 2 mm punctate density in the right lower pelvis appearing within the distal right ureteral, without obstruction. She reports that her pain got better for a couple days and then 3 days ago she reports that it started getting worse again in her right flank area. She endorses having nausea, no vomiting, her pain in her flank has now moved into her abdomen, she denies any fevers, she denies any chills or diaphoresis. She denies any changes to her urine or dysuria, she reports that she was not prescribed Flomax and she is not on any antibiotics. She denies history of this in the past, she reports that she has been staying hydrated and urinating frequently. Related Data Home Medications Medication Instructions Recorded Confirmed oxycodone-acetaminophen 5 mg-325 1 tab PO Q4-6H PRN 12/07/18 12/07/18 mg tablet (Percocet) topiramate 100 mg tablet (Topamax) 200 mg PO BEDTIME tab 12/07/18 12/07/18 alprazolam 2 mg tablet 2 mg PO Q4-6H PRN 07/08/19 07/08/19 cephalexin 500 mg capsule 500 mg PO QID 07/08/19 07/08/19 hepatitis A virus vaccine (PF) 1 ml IM DIRECTED 07/08/19 07/08/19 1,440 FCAUNDO unit/mL intramuscular syringe (Havrix (PF)) topiramate 25 mg tablet 25 mg PO BEDTIME 07/08/19 07/08/19 Previous Rx's Medication Instructions Recorded naproxen sodium 550 mg tablet 550 mg PO TID #60 tab 12/07/18 tranexamic acid 650 mg tablet 1,300 mg PO TID #60 tab 12/07/18 (Lysteda) ondansetron HCl 4 mg tablet 4 mg PO Q8H PRN #30 tab 03/22/21 (Zofran) oxycodone 10 mg tablet 10 mg PO Q6H PRN #15 tab 03/22/21 tamsulosin 0.4 mg capsule (Flomax) 0.4 mg PO DAILY #14 cap 03/31/21 Allergies Allergy/AdvReac Type Severity Reaction Status Date / Time Sulfa (Sulfonamide Allergy Intermediate HIVES Verified 12/07/18 15:26 Antibiotics) hydrocodone [HYDROCODONE] Allergy Mild ITCH NAUSEA Verified 12/07/18 15:26 Review of Systems <ADAN Winston - Last Filed: 03/31/21 19:16> Review of Systems Narrative: General: denies fever, chills Head/Neck: denies headache, neck pain Eyes: denies visual changes, eye pain Cardio: denies chest pain, palpitations Respiratory: denies shortness of breath, cough GI: Endorses mild generalized abdominal discomfort with nausea denies any point tenderness in her abdomen, denies vomiting, or diarrhea : denies dysuria, hematuria, endorses right flank pain MSK: denies joint pain, muscle weakness Skin: denies rash, itching Neuro: denies numbness, tingling Patient History <ADAN Winston - Last Filed: 03/31/21 19:16> Medical History (Updated 04/06/21 @ 00:00 by ) Anxiety Back pain Knee pain Migraine headache Surgical History S/P foot surgery, left Status post delivery (12/17/97) Status post delivery (10/28/04) Status post delivery (02/19/07) Social History Smoking Status: Current every day smoker Smoking Status: Current every day smoker tobacco type: vaping alcohol intake frequency: holidays/special occasions only Substance Use Type: does not use Exam <ADAN Winston - Last Filed: 03/31/21 19:16> Narrative Exam Narrative: Independently reviewed vitals signs and nursing notes. General: Awake, alert, nontoxic, no cardiorespiratory distress Head/Neck: Atraumatic, neck full range of motion Eyes: EOMI, conjunctiva normal Nose: nares patent, no rhinorrhea Mouth/Throat: moist mucus membranes, posterior pharynx normal, no oral lesions Cardio: Regular rate and rhythm, no peripheral edema Respiratory: respirations unlabored without wheezing, stridor, or rales. No retractions. GI: Abdomen soft, nontender to palpation x4 quadrants, positive CVA tenderness on the right, negative CVA tenderness on the left, generalized abdominal discomfort during exam but no pain with palpation MSK: Moves all extremities, neurovascularly intact Skin: Normal capillary refill, no rash Neuro: Normal speech and cognition, normal gait Initial Vital Signs Initial Vital Signs: Vital Signs Temperature 98.1 F 03/31/21 13:07 Pulse Rate 59 L 03/31/21 13:07 Respiratory Rate 18 03/31/21 13:07 Blood Pressure 126/84 03/31/21 13:07 Pulse Oximetry 100 03/31/21 13:07 <Mónica Charles DO - Last Filed: 04/14/21 08:09> Initial Vital Signs Initial Vital Signs: Vital Signs Temperature 98.1 F 03/31/21 13:07 Pulse Rate 59 L 03/31/21 13:07 Respiratory Rate 18 03/31/21 13:07 Blood Pressure 126/84 03/31/21 13:07 Pulse Oximetry 100 03/31/21 13:07 Course <ADAN Winston - Last Filed: 03/31/21 19:16> Orders Ordered: Discontinued Medications Ketorolac Tromethamine (Ketorolac 30 Mg/Ml Vial) 30 mg IM NOW ONE Stop: 03/31/21 15:19 Last Admin: 03/31/21 15:27 Dose: 30 mg Documented by: JEREMÍAS Ondansetron HCl (Ondansetron 4 Mg/2 Ml Inj) 4 mg IV NOW ONE Stop: 03/31/21 15:21 Last Admin: 03/31/21 15:27 Dose: 4 mg Documented by: JEREMÍAS Tamsulosin HCl (Tamsulosin 0.4 Mg Capsule) 0.4 mg PO NOW ONE Stop: 03/31/21 15:19 Last Admin: 03/31/21 15:27 Dose: 0.4 mg Documented by: JEREMÍAS Vital Signs Vital signs: Vital Signs - 8 hr 03/31/21 13:07 03/31/21 16:20 Temperature 98.1 F Pulse Rate 59 L 58 L Respiratory Rate 18 Blood Pressure 126/84 113/59 L Pulse Oximetry 100 99 <Mónica Charles DO - Last Filed: 04/14/21 08:09> Orders Ordered: Discontinued Medications Ketorolac Tromethamine (Ketorolac 30 Mg/Ml Vial) 30 mg IM NOW ONE Stop: 03/31/21 15:19 Last Admin: 03/31/21 15:27 Dose: 30 mg Documented by: JEREMÍAS Ondansetron HCl (Ondansetron 4 Mg/2 Ml Inj) 4 mg IV NOW ONE Stop: 03/31/21 15:21 Last Admin: 03/31/21 15:27 Dose: 4 mg Documented by: JEREMÍAS Tamsulosin HCl (Tamsulosin 0.4 Mg Capsule) 0.4 mg PO NOW ONE Stop: 03/31/21 15:19 Last Admin: 03/31/21 15:27 Dose: 0.4 mg Documented by: JEREMÍAS Vital Signs Vital signs: Vital Signs - 8 hr 03/31/21 13:07 03/31/21 16:20 Temperature 98.1 F Pulse Rate 59 L 58 L Respiratory Rate 18 Blood Pressure 126/84 113/59 L Pulse Oximetry 100 99 MDM - Abdominal Pain <ADAN Winston - Last Filed: 03/31/21 19:16> Lab Data Result diagrams: 03/31/21 13:32 03/31/21 13:32 Labs: Lab Results 03/31/21 03/31/21 03/31/21 Range/Units 13:32 13:32 14:35 WBC 7.6 (4.5-11.0) X10^3/uL RBC 4.86 (4.0-5.2) X10^6/uL Hgb 14.7 (12.0-16.0) g/dL Hct 42.8 (36-46) % MCV 88.2 (80-100) fL MCH 30.3 (26-34) PG MCHC 34.4 (30-36) % RDW 12.6 (11.6-14.8) % Plt Count 227 (150-400) X10^3/uL Neut % (Auto) 58.3 (50-75) % Lymph % (Auto) 32.6 (25-40) % Otero % (Auto) 7.5 (3-14) % Eos % (Auto) 1.1 L (2-4) % Baso % (Auto) 0.5 (0-2) % Neut # (Auto) 4400 (7332-8828) /uL Lymph # (Auto) 2500 (9984-4759) /uL Otero # (Auto) 600 (0-900) /uL Eos # (Auto) 100 (0-450) /uL Baso # (Auto) 0 (0-100) /uL Sodium 137 (137-145) mmol/L Potassium 4.0 (3.4-5.1) mmol/L Chloride 105 (98-107) mmol/L Carbon Dioxide 21 L (22-32) mmol/L BUN 17 (7-17) mg/dL Creatinine 0.87 (0.52-1.04) mg/dL Estimated GFR > 60.0 (>60) mL/min BUN/Creatinine Ratio 19.5 (6-22) Glucose 86 (70-100) mg/dL Calcium 9.2 (8.4-10.2) mg/dL Total Bilirubin 0.4 (0.2-1.3) mg/dL AST 25 (14-36) IU/L ALT 24 (<35) IU/L Alkaline Phosphatase 48 (38-126) U/L Total Protein 7.0 (6.3-8.2) g/dL Albumin 4.3 (3.5-5.0) g/dL Globulin 2.7 (1.7-4.1) g/dL Albumin/Globulin Ratio 1.6 (1.0-2.8) Lipase 134 (23-300) U/L Urine RBC None seen (0-5/HPF) Urine WBC 1-5/hpf (0-5/HPF) Ur Squamous Epith Cells 1-5 /hpf (0-5/HPF) Urine Bacteria Moderate (10-30) H (None) Ur Culture Indicated? Specimen cultured Point of care testing: Point of Care Testing Test Results Negative Urine Dip Bedside Urine Glucose Negative Bedside Urine Bilirubin - Negative Bedside Urine Ketone - Negative Urine Specific [place] 1.030 Bedside Urine Occult Blood - Negative Bedside Urine pH 5.5 Bedside Urine Protein - Negative Bedside Urine Urobilinogen - Negative Bedside Urine Nitrite - Negative Bedside Urine Leukocytes +/- [address] scan - abdomen/pelvis: Radiologist's Impression: PROCEDURE:? CT KIDNEY URETER BLADDER (KUB) ? INDICATIONS:? eval rt kidney stone location/size, obstruction ? TECHNIQUE: ? Axial sections were acquired from the lung bases to the pubic symphysis.? Coronal and sagittal reformats were performed.? For radiation dose reduction, the following was used:? automated exposure control, adjustment of mA and/or kV according to patient size.? ? COMPARISON:? [facility], CT, CT ABDOMEN PELVIS W CON, 03/22/2021, 15:20. ? FINDINGS:? Image quality:? Excellent.? ? Lung bases:? Unremarkable.? ? Heart:? No significant findings. ? URINARY: Right Kidney: ? No stones or hydronephrosis.? Right Ureter:? 2 mm punctate calcification near the expected location of the distal right ureter on image 2/76 and is again noted, unchanged.? Additional phleboliths in the pelvis is also noted, unchanged ? Left Kidney: ? No stones or hydronephrosis. Left Ureter:? No hydroureter.? ? Bladder:? Normal wall thickness. No stones. ? ? ? ABDOMEN: Liver:? Unremarkable.? ? Gallbladder:? Unremarkable.? ? Biliary ducts:? Unremarkable.? ? Pancreas:? Unremarkable.? ? Spleen:? Unremarkable.? ? Adrenal Glands:? Unremarkable.? ? ? Stomach and Bowel:? Stomach, small bowel loops, and colon are unremarkable.? Peritoneum:? No abnormal intraperitoneal fluid.? No free air.? ? Ventral Wall: ? No hernia.? Abdominal Nodes:? No enlarged retroperitoneal or mesenteric lymph nodes.? Vessels:? Aorta and inferior vena cava are normal in size.? ? PELVIS: Pelvic Organs:? Unremarkable.? ? Pelvic Nodes: Unremarkable. Miscellaneous: No inguinal hernias are seen. ? ? ? Bones:? Unremarkable. ? IMPRESSION:? ? 1. Small 2 mm density in the right lower pelvis remains unchanged from the prior exam, near the expected location of the distal right ureter.? There is no hydronephrosis hydroureter present.? Differential remains nonobstructive stable ureteral calculus versus phlebolith. ? 2. Normal appendix? Approved by: Maximo Chavez M.D. on 03/31/2021 at 15:16? MDM Narrative Medical decision making narrative: 40-year-old female presents to the emergency department with complaint of right flank pain consistent with her known kidney stone. She has been afebrile, nontoxic-appearing, history and exam are reassuring although patient was not started on Flomax and has a 2 mm renal calculi located in her distal right ureter which is nonobstructive. She was scanned again today for concern of worsening or additional stones related to her complaints, and it was similar to her prior scan without any changes. She was given Flomax while in the emergency department today and Toradol with marked relief in her symptoms, she understands to follow-up with her PCP in the next week or to. Patient is nontoxic appearing, no signs that this is infectious at this point, her WBC is 7.6, w ithout a left shift, urine is negative for nitrites and wbc's, culture is pending. Patient had CVA tenderness on the right although has been afebrile, without vomiting. This is most likely nephrolithiasis without obstruction. Differential includes pelvic inflammatory disease, prostatitis, appendicitis, STIs including BV, chlamydia, gonorrhea, group B strep, pancreatitis. Patient understands to follow-up with her primary care provider this week, continue the Flomax, and return for any new or worsening symptoms. Patient is appropriate and amenable to discharge home. Vital signs are stable on repeat examination is unremarkable. Patient has been informed of results. Patient has been given strict return to ER precautions for any new or worsening symptoms. Patient understands to follow up closely with outpatient providers as instructed. Patient understands plan and agrees to discharge home. All questions and concerns answered at this time. <Mónica Charles, - Last Filed: 04/14/21 08:09> Lab Data Labs: Lab Results 03/31/21 03/31/21 03/31/21 Range/Units 13:32 13:32 14:35 WBC 7.6 (4.5-11.0) X10^3/uL RBC 4.86 (4.0-5.2) X10^6/uL Hgb 14.7 (12.0-16.0) g/dL Hct 42.8 (36-46) % MCV 88.2 (80-100) fL MCH 30.3 (26-34) PG MCHC 34.4 (30-36) % RDW 12.6 (11.6-14.8) % Plt Count 227 (150-400) X10^3/uL Neut % (Auto) 58.3 (50-75) % Lymph % (Auto) 32.6 (25-40) % Otero % (Auto) 7.5 (3-14) % Eos % (Auto) 1.1 L (2-4) % Baso % (Auto) 0.5 (0-2) % Neut # (Auto) 4400 (7651-5267) /uL Lymph # (Auto) 2500 (9478-3245) /uL [place] # (Auto) 600 (0-900) /uL Eos # (Auto) 100 (0-450) /uL Baso # (Auto) 0 (0-100) /uL Sodium 137 (137-145) mmol/L Potassium 4.0 (3.4-5.1) mmol/L Chloride 105 (98-107) mmol/L Carbon Dioxide 21 L (22-32) mmol/L BUN 17 (7-17) mg/dL Creatinine 0.87 (0.52-1.04) mg/dL Estimated GFR > 60.0 (>60) mL/min BUN/Creatinine Ratio 19.5 (6-22) Glucose 86 (70-100) mg/dL Calcium 9.2 (8.4-10.2) mg/dL Total Bilirubin 0.4 (0.2-1.3) mg/dL AST 25 (14-36) IU/L ALT 24 (<35) IU/L Alkaline Phosphatase 48 (38-126) U/L Total Protein 7.0 (6.3-8.2) g/dL Albumin 4.3 (3.5-5.0) g/dL Globulin 2.7 (1.7-4.1) g/dL Albumin/Globulin Ratio 1.6 (1.0-2.8) Lipase 134 (23-300) U/L Urine RBC None seen (0-5/HPF) Urine WBC 1-5/hpf (0-5/HPF) Ur Squamous Epith Cells 1-5 /hpf (0-5/HPF) Urine Bacteria Moderate (10-30) H (None) Ur Culture Indicated? Specimen cultured Point of care testing: Point of Care Testing Test Results Negative Urine Dip Bedside Urine Glucose Negative Bedside Urine Bilirubin - Negative Bedside Urine Ketone - Negative Urine Specific [place] 1.030 Bedside Urine Occult Blood - Negative Bedside Urine pH 5.5 Bedside Urine Protein - Negative Bedside Urine Urobilinogen - Negative Bedside Urine Nitrite - Negative Bedside Urine Leukocytes +/- 15 Esterase Discharge Plan Departure Patient Disposition: Home Clinical Impression: Nephrolithiasis Instructions: DI for Kidney Stones Activity Restrictions/Additional Instructions: *You have been diagnosed with a 2mm right kidney stone in the distal ureter which is the same size and in the same position as it was a few days ago. Please follow-up with Dr. Barnes this week, take the Flomax as prescribed, t estevan your pain medication if you need it. If you continue to have low abdominal pain, please ask about being tested for BV, since you did not think the symptoms were the same today as you have had in the past, it might be worth testing at your follow-up appointment. Everything when your lab work was reassuring that there is not an infectious process going on, I hope that you start feeling better soon. Please return to the emergency department if you develop any worsening of your symptoms. *What to do: *Please continue to take your regular medications as directed. [ ] New medication prescriptions sent to your pharmacy: [[facility] ] [ ] New medication written as a paper prescription [ ] No new medications given *Please follow up with your primary care provider in 2-3 days, call for an appointment. Let them know you were seen in the Emergency Department and that we ask that you be seen in follow up. We will electronically transmit a record of today's note if your PCP is in our system *If you do not have a primary care provider please contact the [facility] Resource line at [phone]. They will ask some questions about your medical history and help get you set up with a doctor in the community. *Return to Emergency Department if you should have any new, worsening or concerning symptoms, such as [fever greater than 101F, chills, worsening pain, persistent vomiting or other bothersome symptoms] Prescriptions: New tamsulosin [Flomax] 0.4 mg capsule 0.4 mg PO DAILY Qty: 14 0RF No Action oxycodone-acetaminophen [Percocet] 5-325 mg tablet 1 tab PO Q4-6H PRN0RF topiramate [Topamax] 100 mg tablet 200 mg PO BEDTIME 0RF Rx Instructions: WITH 25MG TAB naproxen sodium 550 mg tablet 550 mg PO TID Qty: 60 0RF tranexamic acid [Lysteda] 650 mg tablet 1,300 mg PO TID Qty: 60 3RF topiramate 25 mg tablet 25 mg PO BEDTIME 0RF Label Comments: take 1 tablet by mouth at bedtime with 200 milligram at bedtime Rx Instructions: WITH 2 X 100MG TABS cephalexin 500 mg capsule 500 mg PO QID 0RF Label Comments: take 1 capsule by mouth four times a day alprazolam 2 mg tablet 2 mg PO Q4-6H PRN (Reason: Anxiety) 0RF Label Comments: take 1 tablet by mouth every 4 to 6 hours if needed Havrix (PF) 1,440 FACUNDO unit/mL syringe 1 ml IM DIRECTED 0RF Label Comments: inject 1 milliliter intramuscularly ondansetron HCl [Zofran] 4 mg tablet 4 mg PO Q8H PRN (Reason: nausea and vomiting) Qty: 30 0RF oxycodone 10 mg tablet 10 mg PO Q6H PRN (Reason: pain) Qty: 15 0RF Referrals: Rhys Barnes MD [Primary Care Provider] - <Mónica Charles DO - Last Filed: 04/14/21 08:09> Cosign ED Attending Kimberleeature Attestation: I was immediately available in the department for consultation. Documentation has been reviewed. Case was discussed with myself. There was discussion about pelvic exam if CT did not show a distal kidney stone still present.
[2021-03-31] MEDS: TAMSULOSIN 0.4 MG CAPSULE PO (15:27)
[2021-03-31] MEDS: KETOROLAC 30 MG/ML VIAL IM (15:27)
[2021-03-31] MEDS: ONDANSETRON 4 MG/2 ML INJ IV (15:27)
[2021-03-31 15:54] LABS: Bacteria Urine Moderate (10-30); Culture Indicated Urine Specimen Cultured; RBC Urine None Seen (0-5/HPF); Squamous Epithelial Cell Urine 1-5 /HPF (0-5/HPF); WBC Urine 1-5/HPF (0-5/HPF)
[2021-03-31 16:20] VITALS: BP 113/59; PULSE 58; O2SAT 99
== END 2021-03-31 17:15 | disposition home or self-care (01) ==
PROVIDERS: Emergency Medicine; Emergency Provider Nurse Practitioner Critical Care Medicine; PCP Family Medicine
DX: N20.0 Calculus of kidney (principal)
CPT/HCPCS: 36415; 74176; 80053; 81003; 81015; 81025; 83690; 85025; 87086; 96372; 96374; 99284; J1885; J2405

== ENCOUNTER → 2021-08-19 10:40 | Outpatient (CLI) | payer OTHER, MEDICAID, SELFPAY ==
--- NOTE | 2021-08-19 10:43 | DI.CT.S_ITS ---
PROCEDURE: CT ANGIO CHEST INDICATIONS: Shortness of breath TECHNIQUE: After the administration of intravenous contrast, 2 mm thick sections acquired from the pulmonary apices to the posterior costophrenic angles. 3-dimensional maximum intensity projection (MIP) coronal and sagittal reformats were then acquired through the thorax. For radiation dose reduction, the following was used: automated exposure control, adjustment of mA and/or kV according to patient size. COMPARISON: None. FINDINGS: Image quality: Excellent. Pulmonary arteries: Pulmonary arteries are normal in size, and demonstrate no intraluminal filling defects to suggest central pulmonary embolism. Lungs and pleura: Lungs are clear. No pleural effusions or pneumothorax. Central and peripheral airways are patent. Mediastinum: Heart size is normal, without pericardial effusion. No mediastinal or hilar adenopathy. Thoracic aorta is normal in caliber and enhancement. Esophagus is normal in caliber, without hiatal hernia. Bones and chest wall: No suspicious bony lesions. Ribs and thoracic spine appear intact throughout. Thyroid gland is normal. No axillary or supraclavicular adenopathy. Abdomen: Visualized upper abdominal solid organs appear normal in the early arterial phase of enhancement. IMPRESSION: 1. No acute abnormality of the chest. 2. No pulmonary embolism or aortic dissection. Dictated by: Malachi Fermin M.D. on 08/19/2021 at 15:58 Approved by: Malachi Fermin M.D. on 08/19/2021 at 16:08
== END ==
PROVIDERS: PCP Family Medicine; Referring Provider Family Medicine; Visit Provider Family Medicine
DX: R06.02 Shortness of breath (principal); R00.2 Palpitations
CPT/HCPCS: 71275

== ENCOUNTER → 2022-05-14 09:09 | Outpatient (CLI) | payer OTHER, MEDICAID, SELFPAY ==
--- NOTE | 2022-05-14 | DI.US.S_ITS ---
PROCEDURE: US THYROID INDICATIONS: thyrotoxicosis without thyrotoxic crisis or storm TECHNIQUE: Real-time scanning was performed of the thyroid gland, with image documentation. COMPARISON: None. FINDINGS: Right: Thyroid lobe measures 5.2 x 2.2 x 1.6 cm, and is homogeneous in echotexture. Left: Thyroid lobe measures 5.1 x 2.1 x 2.4 cm, and is homogenous in echotexture. Isthmus: 0.7 cm thick. Nodule number: 1 Location: Left mid Size: 2.7 x 1.6 x 2.0 cm Composition: Solid Echogenicity: Isoechoic Shape: Wider than tall Margins: Smooth Echogenic foci: None Total points: 3 ACR TI-RADS category: Mildly suspicious IMPRESSION: Single mildly suspicious 2.7 cm left thyroid nodule. Recommend ultrasound-guided fine-needle aspiration for further evaluation based on guidelines provided below. ACR TI-RADS definitions and recommendations: TI-RADS 1 (benign): 0 points. FNA not needed. TI-RADS 2 (not suspicious): 2 points. FNA not needed. TI-RADS 3 (mildly suspicious): 3 points. * FNA if 2.5 cm or larger, follow up if 1.5 cm or larger (at 1, 3, and 5 years). TI-RADS 4 (moderately suspicious): 4-6 points. * FNA if 1.5 cm or larger, follow up if 1 cm or larger (at 1, 2, 3, and 5 years). TI-RADS 5 (highly suspicious): 7 points or more. * FNA if 1 cm or larger, follow up if 0.5 cm or larger (every year for 5 years). Approved by: Kenn Barksdale M.D. on 05/14/2022 at 10:50
== END ==
PROVIDERS: PCP Family Medicine; Referring Provider Family Medicine; Visit Provider Family Medicine
DX: E05.80 Other thyrotoxicosis without thyrotoxic crisis or storm (principal); E04.1 Nontoxic single thyroid nodule
CPT/HCPCS: 76536

== ENCOUNTER → 2024-01-24 10:23 | Outpatient (CLI) | payer OTHER, SELFPAY | PROVIDERS: PCP Family Medicine; Visit Provider Student in an Organized Health Care Education/Training Program | DX: R10.9 Unspecified abdominal pain (principal) | CPT/HCPCS: 87086 ==

== ENCOUNTER → 2024-08-24 09:14 | Outpatient (CLI) | payer OTHER, SELFPAY ==
--- NOTE | 2024-08-24 09:15 | DI.ECHO.S_ITS ---
[facility] : : [address] : : [place] : : [id number] : : Phone: [phone] Echocardiogram Report + + :Name: FLORI MCRAE Study Date: 08/24/2024 Height: 69 in : :Hospital ReadingLocation: Weight: 194 lb : : Gender: Female BSA: 2.0 m2 : :: 1980 Age: 44 yrs BP: 120/87 mmHg: :Reason For Study: HYPERTENSION : :Ordering Physician: CAMILLE, : :JULIO Ledezma Performed By: Dylon Erickson : :Referring: JULIO OBRIEN : + + Interpretation Summary The ejection fraction is estimated to be 45-50%. Left ventricular systolic function is low normal. The atrial septum is aneurysmal. Consider repeat limited study with bubble contrast to rule out a PFO. There is no significant valvular heart disease. Procedure: A two-dimensional transthoracic echocardiogram with color flow and Doppler was performed. The study quality was technically good. There is no prior echocardiogram noted for this patient. The patient was in normal sinus rhythm during the exam. Left Ventricle: The left ventricle is normal in size. There is normal left ventricular wall thickness. There is no ventricular septal defect visualized. The ejection fraction is estimated to be 45-50%. Left ventricular systolic function is low normal. There are no focal wall motion abnormalities. Diastolic parameters suggest a relaxation abnormality of the left ventricle, consistent with probable normal filling pressures. Right Ventricle: The right ventricle is normal in size and function. Atria: The left atrial size is normal. Right atrial size is normal. The atrial septum is aneurysmal. Consider repeat limited study with bubble contrast to rule out a PFO. Mitral Valve: There is mild mitral annular calcification. The mitral valve leaflets appear normal. There is no evidence of stenosis, fluttering, or prolapse. There is no mitral regurgitation noted. Aortic Valve: The aortic valve is trileaflet. The aortic valve opens well. No aortic regurgitation is present. Tricuspid Valve: The tricuspid valve leaflets are thin and pliable. No tricuspid regurgitation. Pulmonic Valve: The pulmonic valve is not well seen, but is grossly normal. There is no pulmonic valvular regurgitation. Great Vessels: The aortic root is normal size. The dimensions of the ascending aorta are normal. The pulmonary artery is normal size. The IVC is dilated (diameter is greater than 2.1 cm) yet it collapses greater than 50% with a sniff. This suggests a right atrial pressure of 8 mm Hg. Pericardium/ Pleura There is no pericardial effusion. MMode/2D Measurements & Calculations LVIDd: 4.7 cm LVOT diam: 2.1 cm LVIDs: 3.1 cm Ao root diam: 3.1 cm FS: 32.9 % EPSS: 0.86 cm IVSd: 1.0 cm LVPWd: 1.0 cm LV fuentes. diameter/BSA (cm/m^2): 2.3 LV sys. diameter/BSA (cm/m^2): 1.5 LA A2 area: 20.7 cm2 RA long axis: 5.0 cm LA A4 area: 19.2 cm2 RA area: 14.3 cm2 LA length (vol): 5.5 cm RA vol: 34.7 ml LA vol: 61.3 ml RA : 17.0 ml/m2 LA vol index: 30.1 ml/m2 IVC diam: 2.2 cm RVD1 (basal): 3.0 cm RVD2 (mid): 2.7 cm TAPSE: 2.6 cm Doppler Measurements & Calculations Ao V2 max: 155.2 cm/sec LVOT Max Truman: 122.6 cm/sec Ao V2 mean: 113.1 cm/sec LV V1 max P.0 mmHg Ao max P.6 mmHg LV V1 VTI: 25.9 cm Ao mean P.6 mmHg MARGARET(I,D): 2.8 cm2 Ao V2 VTI: 33.6 cm MARGARET(V,D): 2.8 cm2 sev ratio: 0.77 MARGARET indexed to BSA (cm^2/m^2): 1.4 MV E max truman: 63.5 cm/sec PA V2 max: 79.1 cm/sec MV A max truman: 83.9 cm/sec PA V2 mean: 52.8 cm/sec MV E/A: 0.76 PA mean P.3 mmHg Med Peak E' Truman: 7.1 cm/sec PA pr(Accel): 7.1 mmHg E/E' med: 9.0 Lat Peak E' Truman: 11.1 cm/sec E/E' lat: 5.7 E/e' average: 7.4 MV dec time: 0.22 sec SV(LVOT): 93.5 ml Reading Physician:05:07 PM
== END ==
PROVIDERS: PCP Family Medicine; Referring Provider Family Medicine; Visit Provider Family Medicine
DX: I34.81 Nonrheumatic mitral (valve) annulus calcification (principal); I10 Essential (primary) hypertension
CPT/HCPCS: 93306